=== PATIENT | female | born 1990 | race Caucasian/White ===

== ENCOUNTER 2016-10-29 12:02 | Observation (INO) | payer OTHER ==
[2016-10-29] MEDS ORDERED: SODIUM CHLORIDE 0.9% 1,000 ML IV STA ×2 (14:12)
--- NOTE | 2016-10-29 14:34 | ED ---
Syncope HPI - General Chief Complaint: Syncope Stated Complaint: Dizzy/passing out Time Seen by Provider: 10/29/16 14:01 Source: patient Mode of arrival: wheelchair Limitations: no limitations - History of Present Illness Initial Comments: This 26-year-old white female presents with the complaint of having 3 syncopal episodes around 11:30 AM. She states that they were all within approximately one hour. She states that she was able to lower herself down and did not sustain any injuries. She states that she's had some mild diffuse abdominal pain. She feels somewhat shaky. She denies any palpitations shortness of breath or chest pain. She does have a history of severe mitral regurgitation diagnosed approximately one year ago by cardiology. She had a transesophageal echo at that time. She also relates a recent diagnosis of atrial fibrillation via Dr. Morley. No other complaints or modifying factors. - Related Data Home Medications Medication Instructions Recorded Confirmed No Known Home Medications [No 09/06/15 10/29/16 Known Home Medications] Allergies Allergy/AdvReac Type Severity Reaction Status Date / Time No Known Allergies Allergy Verified 10/29/16 14:01 Review of Systems ROS Statement: Those systems with pertinent positive or pertinent negative responses have been documented in the HPI. ROS Other: All systems not noted in ROS Statement are negative. Past Medical History Past Medical History: Atrial Fibrillation, Hearing Disorder / Deafness Additional Past Medical History / Comment(s): "LOOSE HEART VALVE" History of Any Multi-Drug Resistant Organisms: None Reported Past Surgical History: Ear Surgery Additional Past Surgical History / Comment(s): WISDOM TEETH REMOVED Past Anesthesia/Blood Transfusion Reactions: No Reported Reaction Additional Past Anesthesia/Blood Transfusion Reaction / Comment(s): NEVER HAS HAD GENERAL ANESTHESIA Past Psychological History: No Psychological Hx Reported Smoking Status: Never smoker Past Alcohol Use History: None Reported Past Drug Use History: None Reported - Past Family History Mother Family Medical History: Hypertension Additional Family Medical History / Comment(s): HEART MURMUR Father Family Medical History: No Reported History Sister(s) Additional Family Medical History / Comment(s): ANEMIA General Exam - General Exam Comments Initial Comments: GENERAL: The patient is well nourished and well hydrated. VITAL SIGNS: Heart rate, blood pressure, respiratory rate reviewed as recorded in nurse's notes. EYES: Pupils are round and reactive. Extraocular movements are intact. No conjunctival / lid redness or swelling. ENT: No external evidence of injury, swelling, or ecchymosis. Airway is patent. Throat is clear. NECK: Nontender. No swelling or evidence of injury. No subcutaneous emphysema. Trachea is midline. No thyroid mass. HEART: Regular rate and rhythm. Good peripheral pulses. There is a large heart murmur noted. LUNGS/CHEST: Breath sounds clear and equal bilaterally. No rales, rhonchi, or wheezes. No ecchymosis, subcutaneous emphysema, or tenderness. ABDOMEN: Abdomen soft without tenderness. No palpable masses or organomegaly. No peritoneal signs. No abdominal wall swelling or ecchymosis. EXTREMITIES: No extremity tenderness. Normal muscle tone and function. No thoracolumbar tenderness. NEUROLOGIC: Sensation is grossly intact. Cranial nerve exam reveals face is symmetrical, tongue is midline, speech is clear. SKIN: No abrasions or ecchymosis is noted. No induration or masses noted. PSYCHIATRIC: Alert and oriented. Appropriate behavior and judgment. 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 All diagnostics were reviewed. IV is started and she is placed on a fugitive investigator. The EKG was done and shows a normal sinus rhythm at a rate of 77. There is no acute ST-T wave changes noted. The AL interval is 158, QRS duration is 100, and QTC intervals 454. An IV is started and she was thoroughly hydrated. The acute abdominal series was negative per radiology. The laboratory work is all essentially within normal limits. The exact cause of patient's symptomatology is not definitively determined. Case was discussed with Dr. Durand and he would like the patient admitted. He relates that she does have an atrial tachycardia. This potentially could be related to her symptoms. He would like TSH drawn as well. The patient will be admitted under telemetry observation. Case will be discussed with internal medicine in the near future. - Lab Data Result diagrams: 10/29/16 14:27 10/29/16 14:27 Lab Results 10/29/16 10/29/16 10/29/16 Range/Units 14:27 14:27 14:27 WBC 10.4 (3.8-10.6) k/uL RBC 4.50 (3.80-5.40) m/uL Hgb 13.8 (11.4-16.0) gm/dL Hct 41.3 (34.0-46.0) % MCV 91.7 (80.0-100.0) fL MCH 30.6 (25.0-35.0) pg MCHC 33.4 (31.0-37.0) g/dL RDW 12.7 (11.5-15.5) % Plt Count 162 (150-450) k/uL Neutrophils % 89 % Lymphocytes % 6 % Monocytes % 4 % Eosinophils % 0 % Basophils % 0 % Neutrophils # 9.3 H (1.3-7.7) k/uL Lymphocytes # 0.6 L (1.0-4.8) k/uL Monocytes # 0.4 (0-1.0) k/uL Eosinophils # 0.0 (0-0.7) k/uL Basophils # 0.0 (0-0.2) k/uL Sodium 140 (137-145) mmol/L Potassium 4.1 (3.5-5.1) mmol/L Chloride 103 (98-107) mmol/L Carbon Dioxide 24 (22-30) mmol/L Anion Gap 13 mmol/L BUN 8 (7-17) mg/dL Creatinine 0.80 (0.52-1.04) mg/dL Est GFR (MDRD) Af Amer >60 (>60 ml/min/1.73 sqM) Est GFR (MDRD) Non-Af >60 (>60 ml/min/1.73 sqM) Glucose 99 (74-99) mg/dL Calcium 9.2 (8.4-10.2) mg/dL Total Bilirubin 0.6 (0.2-1.3) mg/dL AST 19 (14-36) U/L ALT 27 (9-52) U/L Alkaline Phosphatase 61 (38-126) U/L Total Creatine Kinase 34 (30-135) U/L CK-MB (CK-2) <0.2 (0.0-2.4) ng/mL CK-MB (CK-2) Rel Index Troponin I <0.012 (0.000-0.034) ng/mL Total Protein 7.7 (6.3-8.2) g/dL Albumin 4.7 (3.5-5.0) g/dL Amylase <30 L (30-110) U/L Lipase 55 (23-300) U/L Urine Color Urine Appearance (Clear) Urine pH (5.0-8.0) Ur Specific [place] (1.001-1.035) Urine Protein (Negative) Urine Glucose (UA) (Negative) Urine Ketones (Negative) Urine Blood (Negative) Urine Nitrate (Negative) Urine Bilirubin (Negative) Urine Urobilinogen (<2.0) mg/dL Ur Leukocyte Esterase (Negative) Urine WBC (0-5) /hpf Ur Squamous Epith Cells (0-4) /hpf Urine Bacteria (None) /hpf Urine Mucus (None) /hpf 10/29/16 Range/Units 14:27 WBC (3.8-10.6) k/uL RBC (3.80-5.40) m/uL Hgb (11.4-16.0) gm/dL Hct (34.0-46.0) % MCV (80.0-100.0) fL MCH (25.0-35.0) pg MCHC (31.0-37.0) g/dL RDW (11.5-15.5) % Plt Count (150-450) k/uL Neutrophils % % Lymphocytes % % Monocytes % % Eosinophils % % Basophils % % Neutrophils # (1.3-7.7) k/uL Lymphocytes # (1.0-4.8) k/uL Monocytes # (0-1.0) k/uL Eosinophils # (0-0.7) k/uL Basophils # (0-0.2) k/uL Sodium (137-145) mmol/L Potassium (3.5-5.1) mmol/L Chloride (98-107) mmol/L Carbon Dioxide (22-30) mmol/L Anion Gap mmol/L BUN (7-17) mg/dL Creatinine (0.52-1.04) mg/dL Est GFR (MDRD) Af Amer (>60 ml/min/1.73 sqM) Est GFR (MDRD) Non-Af (>60 ml/min/1.73 sqM) Glucose (74-99) mg/dL Calcium (8.4-10.2) mg/dL Total Bilirubin (0.2-1.3) mg/dL AST (14-36) U/L ALT (9-52) U/L Alkaline Phosphatase (38-126) U/L Total Creatine Kinase (30-135) U/L CK-MB (CK-2) (0.0-2.4) ng/mL CK-MB (CK-2) Rel Index Troponin I (0.000-0.034) ng/mL Total Protein (6.3-8.2) g/dL Albumin (3.5-5.0) g/dL Amylase (30-110) U/L Lipase (23-300) U/L Urine Color Yellow Urine Appearance Cloudy H (Clear) Urine pH 5.5 (5.0-8.0) Ur Specific [place] 1.010 (1.001-1.035) Urine Protein Negative (Negative) Urine Glucose (UA) Negative (Negative) Urine Ketones Negative (Negative) Urine Blood Negative (Negative) Urine Nitrate Negative (Negative) Urine Bilirubin Negative (Negative) Urine Urobilinogen <2.0 (<2.0) mg/dL Ur Leukocyte Esterase Negative (Negative) Urine WBC 2 (0-5) /hpf Ur Squamous Epith Cells 1 (0-4) /hpf Urine Bacteria Rare H (None) /hpf Urine Mucus Many H (None) /hpf Disposition Clinical Impression: Syncope, Atrial tachycardia, Abdominal pain Disposition: ADMITTED IP TO THIS HOSP Condition: Fair Time of Disposition: 16:07 Decision Date: 10/29/16 Decision Time: 16:07
[2016-10-29 14:45] LABS: Basophils % (A) 0 %; CH 31.1; CHCM 34.1; Eosinophils % (A) 0 %; HCT 41.3 % (34.0-46.0); HDW 2.77; HGB 13.8 gm/dL (11.4-16.0); Luc # (Auto) 0.05; Luc % (Auto) 1; Lymphocytes # (A) 0.6 k/uL (1.0-4.8); Lymphocytes % (A) 6 %; MCH 30.6 pg (25.0-35.0); MCHC 33.4 g/dL (31.0-37.0); MCV 91.7 fL (80.0-100.0); Mean Platelet Volume 8.9; Monocytes # (A) 0.4 k/uL (0-1.0); Monocytes % (A) 4 %; Neutrophils # (A) 9.3 k/uL (1.3-7.7); Neutrophils % (A) 89 %; RDW 12.7 % (11.5-15.5); WBC 10.4 k/uL (3.8-10.6); WBC (Perox) 10.23
[2016-10-29 14:57] LABS: Appearance,Urine Cloudy (Clear); Bacteria,Urine Rare /hpf; Bilirubin,Urine Negative (Negative); Glucose,Urine (UA) Negative (Negative); Ketones,Urine Negative (Negative); Leukocyte Esterase,Urine Negative (Negative); Mucus,Urine Many /hpf; Nitrite,Urine Negative (Negative); PH, Urine 5.5 (5.0-8.0); Particle Count 8338; Protein,Urine Negative (Negative); Squamous Epithelial Cell,Urine 1 /hpf (0-4); UA Billing (MACRO vs. MICRO) MICRO; Urobilinogen,Urine <2.0 mg/dL (<2.0); WBC,Urine 2 /hpf (0-5)
[2016-10-29 14:58] LABS: ALT 27 U/L (9-52); AST 19 U/L (14-36); Alkaline Phosphatase 61 U/L (38-126); Amylase <30 U/L (30-110); Anion Gap 13 mmol/L; Blood Urea Nitrogen 8 mg/dL (7-17); Calcium 9.2 mg/dL (8.4-10.2); Carbon Dioxide 24 mmol/L (22-30); Chloride 103 mmol/L (98-107); Glucose 99 mg/dL (74-99); Non-African American GFR(MDRD) >60 (>60 ml/min/1.73 sqM); Potassium 4.1 mmol/L (3.5-5.1); Sodium 140 mmol/L (137-145); Total Bilirubin 0.6 mg/dL (0.2-1.3); Total Protein 7.7 g/dL (6.3-8.2)
[2016-10-29 15:14] LABS: Creatine Kinase 34 U/L (30-135)
--- NOTE | 2016-10-29 15:14 | XR ---
EXAMINATION TYPE: XR abdomen acute w cxr DATE OF EXAM: 10/29/2016 2:49 PM COMPARISON: NONE HISTORY: Abdominal pain, nausea and vomiting TECHNIQUE: Single view of the chest and 2 views of the abdomen are submitted. FINDINGS: Single view of the chest fails demonstrate evidence for acute pulmonary disease. There is a scoliotic curvature. IUD noted. The bowel gas pattern is unremarkable as there is air throughout nondilated small and large bowel. No sizeable air fluid levels. No mass effects are seen. No unusual calcifications. IMPRESSION: No acute process
[2016-10-29 15:28] LABS: Creatine Kinase MB <0.2 ng/mL (0.0-2.4); Troponin I <0.012 ng/mL (0.000-0.034)
[2016-10-29] MEDS ORDERED: ONDANSETRON 4 MG/2 ML VIAL IVP PRN (16:08)
[2016-10-29 20:48] LABS: Creatine Kinase 25 U/L (30-135)
[2016-10-29 21:02] LABS: Creatine Kinase MB <0.2 ng/mL (0.0-2.4); Troponin I <0.012 ng/mL (0.000-0.034)
[2016-10-30 03:24] LABS: Creatine Kinase 25 U/L (30-135)
[2016-10-30 03:37] LABS: Creatine Kinase MB <0.2 ng/mL (0.0-2.4); Troponin I <0.012 ng/mL (0.000-0.034)
[2016-10-30] MEDS: PANTOPRAZOLE 40 MG/10 ML VIAL IV SCH (09:19)
--- NOTE | 2016-10-30 14:00 | P.CRDCN ---
<Patience White E - Last Filed: 10/30/16 13:54> History of Present Illness Consult date: 10/30/16 Requesting physician: Soledad Daniel Consult reason: sycope Chief complaint: Syncope History of present illness: This is a pleasant 26-year-old female with history of mitral valve prolapse, mitral regurgitation, and paroxysmal atrial tachycardia. She presented to the hospital following a syncopal episode. 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 She states that this feeling came on her approximately 3 times, only losing consciousness once. She feels like the blood is draining from her body and she becomes extremely weak and lightheaded. Mild dizziness. No chest pain or palpitations at the time, no chest discomfort. Patient states that just prior to the episodes happening she had some mild abdominal pain. She states that she had one episode of this in the past which was just prior to her diagnosis of mitral regurgitation. EKG performed on arrival showed normal sinus rhythm with no acute changes. Abdominal x-ray did not reveal any acute process. Lab data, WBC 10.4, hemoglobin 13.8, platelet count 162. Potassium 4.1, BUN 8, creatinine 0.8. Troponins were negative 3. TSH 1.7. Blood pressure 123/70 on arrival, heart rate in the 80s. At the time of my examination this morning, patient feels well, no complaints. In normal sinus rhythm. Past Medical History Past Medical History: Atrial Fibrillation, Hearing Disorder / Deafness, Mitral Valve Prolapse (MVP) Additional Past Medical History / Comment(s): "LOOSE HEART VALVE", "wore heart monitor in sep 2016 told she had a short episode of afib and not on any meds" sinus problems/allergies, [place]-waiting on hearing aids. History of Any Multi-Drug Resistant Organisms: None Reported Past Surgical History: Ear Surgery Additional Past Surgical History / Comment(s): WISDOM TEETH REMOVED,von, lt ear sx(unable to complete d/t anatomical structuring) waiting on hearing aids. Past Anesthesia/Blood Transfusion Reactions: No Reported Reaction Additional Past Anesthesia/Blood Transfusion Reaction / Comment(s): NEVER HAS HAD GENERAL ANESTHESIA Past Psychological History: No Psychological Hx Reported Smoking Status: Never smoker Past Alcohol Use History: Rare Past Drug Use History: None Reported - Past Family History Mother Family Medical History: Hypertension, Thyroid Disorder Additional Family Medical History / Comment(s): HEART MURMUR Father Family Medical History: AFIB, Congestive Heart Failure (CHF), Mitral Valve Prolapse (MVP) Additional Family Medical History / Comment(s): wears hearing aids,murmur, enlarged heart Sister(s) Additional Family Medical History / Comment(s): ANEMIA Medications and Allergies Home Medications Medication Instructions Recorded Confirmed Type No Known Home Medications [No 09/06/15 10/29/16 History Known Home Medications] Allergies Allergy/AdvReac Type Severity Reaction Status Date / Time No Known Allergies Allergy Verified 10/29/16 14:01 Physical Exam Vitals: Vital Signs Temp Pulse Pulse Resp BP BP Pulse Ox 10/30/16 11:09 97.8 F 91 16 123/67 99 10/30/16 08:18 87 16 10/30/16 07:48 97.6 F 87 16 137/63 99 10/30/16 03:57 97.7 F 68 16 113/60 98 10/30/16 01:30 98.0 F 82 16 131/74 99 10/30/16 00:57 73 16 131/66 99 10/29/16 20:29 76 14 120/63 100 Intake and Output 10/29/16 10/30/16 10/30/16 22:59 06:59 14:59 Intake Total 40 Output Total 50 100 Balance -50 -60 Intake: Oral 40 Output: Urine 50 100 Other: Voiding Method Toilet Toilet # Voids 1 Weight 69.8 kg PHYSICAL EXAMINATION: HEENT: Head is atraumatic, normocephalic. Pupils equal, round. Neck is supple. There is no elevated jugular venous pressure. HEART EXAMINATION: Heart S1 and S2. Pansystolic murmur is heard. CHEST EXAMINATION: Lungs are clear to auscultation and precussion. No chest wall tenderness is noted on palpation or with deep breathing. ABDOMEN: Soft, nontender. Bowel sounds are heard. No organomegaly noted. EXTREMITIES: 2+ peripheral pulses with no evidence of peripheral edema and no calf tenderness noted. NEUROLOGIC patient is awake, alert and oriented -3. . Results 10/29/16 14:27 10/29/16 14:27 Cardiac Enzymes 10/29/16 10/30/16 Range/Units 20:15 02:25 CK-MB (CK-2) <0.2 <0.2 (0.0-2.4) ng/mL Troponin I <0.012 <0.012 (0.000-0.034) ng/mL Current Medications Generic Name Dose Route Start Last Admin Trade Name Freq PRN Reason Stop Dose Admin Ondansetron HCl 4 mg 10/29/16 16:08 Zofran IVP Q8HR PRN Nausea And Vomiting Pantoprazole Sodium 40 mg 10/30/16 09:00 10/30/16 09:19 Protonix IV 40 mg DAILY GREGORY Administration Intake and Output 10/29/16 10/30/16 10/30/16 22:59 06:59 14:59 Intake Total 40 Output Total 50 100 Balance -50 -60 Intake: Oral 40 Output: Urine 50 100 Other: Voiding Method Toilet Toilet # Voids 1 Weight 69.8 kg EKG Interpretations (text) EKG shows a normal sinus rhythm with no acute changes. Assessment and Plan Plan: Assessment and plan #1 syncope, likely vasovagal in nature. Precipitated by pain in the abdomen. #2 mitral regurgitation and mitral valve prolapse #3 atrial tachycardia, paroxysmal Plan We will check orthostatic blood pressure and heart rate every shift. Continue to monitor for any tachycardia or bradycardia arrhythmias. Repeat echocardiogram with Doppler study. Continue patient's to follow. DNP note has been reviewed, I agree with a documented findings and plan of care. Patient was seen and examined. <Lanre Durand - Last Filed: 10/30/16 14:25> Physical Exam Vitals: Vital Signs Temp Pulse Pulse Resp BP BP Pulse Ox 10/30/16 11:09 97.8 F 91 16 123/67 99 10/30/16 08:18 87 16 10/30/16 07:48 97.6 F 87 16 137/63 99 10/30/16 03:57 97.7 F 68 16 113/60 98 10/30/16 01:30 98.0 F 82 16 131/74 99 10/30/16 00:57 73 16 131/66 99 10/29/16 20:29 76 14 120/63 100 Intake and Output 10/29/16 10/30/1610/30/17 22:59 06:59 14:59 Intake Total 40 Output Total 50 100 Balance -50 -60 Intake: Oral 40 Output: Urine 50 100 Other: Voiding Method Toilet Toilet # Voids 1 Weight 69.8 kg Results 10/29/16 14:27 10/29/16 14:27 Cardiac Enzymes 10/29/16 10/30/16 Range/Units 20:15 02:25 CK-MB (CK-2) <0.2 <0.2 (0.0-2.4) ng/mL Troponin I <0.012 <0.012 (0.000-0.034) ng/mL Current Medications Generic Name Dose Route Start Last Admin Trade Name Freq PRN Reason Stop Dose Admin Ondansetron HCl 4 mg 10/29/16 16:08 Zofran IVP Q8HR PRN Nausea And Vomiting Pantoprazole Sodium 40 mg 10/30/16 09:00 10/30/16 09:19 Protonix IV 40 mg DAILY GREGORY Administration Intake and Output 10/29/16 10/30/16 10/30/16 22:59 06:59 14:59 Intake Total 40 Output Total 50 100 Balance -50 -60 Intake: Oral 40 Output: Urine 50 100 Other: Voiding Method Toilet Toilet # Voids 1 Weight 69.8 kg
--- NOTE | 2016-10-30 18:16 | P.HPIM ---
History of Present Illness H&P Date: 10/30/16 Chief Complaint: Syncope 26-year-old female with history of mitral valve prolapse comes in to the hospital with an episode of syncope. 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 She stated to have sudden abdominal pain on her left side prior to fainting denies having any abdominal pain at this time no complains of urinary urgency or frequency or change in bowel habits recently Patient denied having any warning signs prior to fainting episode. Denies having any palpitations, chest pressure at that time. Patient does have a history of mitral regurgitation mitral valve prolapse and proximal atrial tachycardia. Patient apparently received a Holter monitor recently and was only noted to have a short burst of atrial tachycardia on that. Patient did lose her consciousness, and the ER initial eval did not reveal any abnormalities in regards to focal weakness or numbness. There is no headaches or reported. Patient was back to her normal self. EKG did not reveal any sinus blocks at this time. At the time of my examination patient states to be asymptomatic. Orthostatics were done which were also negative. Review of Systems All systems: negative (Noted in HPI) Past Medical History Past Medical History: Atrial Fibrillation, Hearing Disorder / Deafness, Mitral Valve Prolapse (MVP) Additional Past Medical History / Comment(s): "LOOSE HEART VALVE", "wore heart monitor in sep 2016 told she had a short episode of afib and not on any meds" sinus problems/allergies, [place]-waiting on hearing aids. History of Any Multi-Drug Resistant Organisms: None Reported Past Surgical History: Ear Surgery Additional Past Surgical History / Comment(s): WISDOM TEETH REMOVED,von, lt ear sx(unable to complete d/t anatomical structuring) waiting on hearing aids. Past Anesthesia/Blood Transfusion Reactions: No Reported Reaction Additional Past Anesthesia/Blood Transfusion Reaction / Comment(s): NEVER HAS HAD GENERAL ANESTHESIA Past Psychological History: No Psychological Hx Reported Smoking Status: Never smoker Past Alcohol Use History: Rare Past Drug Use History: None Reported - Past Family History Mother Family Medical History: Hypertension, Thyroid Disorder Additional Family Medical History / Comment(s): HEART MURMUR Father Family Medical History: AFIB, Congestive Heart Failure (CHF), Mitral Valve Prolapse (MVP) Additional Family Medical History / Comment(s): wears hearing aids,murmur, enlarged heart Sister(s) Additional Family Medical History / Comment(s): ANEMIA Medications and Allergies Home Medications Medication Instructions Recorded Confirmed Type No Known Home Medications [No 09/06/15 10/29/16 History Known Home Medications] Allergies Allergy/AdvReac Type Severity Reaction Status Date / Time No Known Allergies Allergy Verified 10/29/16 14:01 Physical Exam Vitals: Vital Signs Temp Pulse Pulse Resp BP BP BP 10/30/16 16:00 97.5 F L 69 14 136/82 10/30/16 14:32 137/81 133/79 10/30/16 11:09 97.8 F 91 16 10/30/16 08:18 87 16 10/30/16 07:48 97.6 F 87 16 10/30/16 03:57 97.7 F 68 16 10/30/16 01:30 98.0 F 82 16 10/30/16 00:57 73 16 131/66 10/29/16 20:29 76 14 120/63 BP Pulse Ox 10/30/16 16:00 99 10/30/16 14:32 128/75 10/30/16 11:09 123/67 99 10/30/16 08:18 10/30/16 07:48 137/63 99 10/30/16 03:57 113/60 98 10/30/16 01:30 131/74 99 10/30/16 00:57 99 10/29/16 20:29 100 Intake and Output 10/30/16 10/30/16 10/30/16 06:59 14:59 22:59 Intake Total 40 118 Output Total 50 100 600 Balance -50 -60 -482 Intake: Oral 40 118 Output: Urine 50 100 600 Other: Voiding Method Toilet Toilet # Voids 1 Weight 69.8 kg Gen Appearance alert oriented 3 in no distress Lungs currently clear to auscultation Abdomen is soft nontender no organomegaly Neurologically no focal motor or sensory deficit patient. Cranial nerves II-12 grossly intact no carotid bruits appreciated Heart regular rate and rhythm ectopy appreciated. There is a systolic murmur that is loud at the apex. And radiating to the axilla Results CBC & Chem 7: 10/29/16 14:27 10/29/16 14:27 Labs: Abnormal Lab Results - Last 24 Hours (Table) 10/29/16 10/30/16 Range/Units 20:15 02:25 Total Creatine Kinase 25 L 25 L (30-135) U/L Thrombosis Risk Factor Assmnt - Choose All That Apply Any of the Below Risk Factors Present?: No Other Risk Factors: No Other congenital or acquired thrombophilia - If yes, enter type in comment: No Thrombosis Risk Factor Assessment Level: Very Low Risk Assessment and Plan Plan: #1 syncope likely vasovagal in nature #2 history of mitral regurgitation #3 mitral valve prolapse #4 proximal atrial tachycardia Plan Orthostatics are negative. A repeat echocardiogram is ordered by cardiology. Continue monitoring the patient in telemetry for the next 24 hours. May benefit from it a having a prolonged Holter if these symptoms recur. However this appears to be vasovagal in nature.
[2016-10-31] MEDS: PANTOPRAZOLE 40 MG/10 ML VIAL IV SCH (08:49)
[2016-10-31 09:46] VITALS: RESP 14
--- NOTE | 2016-10-31 11:27 | P.PN ---
Subjective Principal diagnosis: Syncope This is a pleasant 26-year-old female with history of mitral valve prolapse, mitral regurgitation, and paroxysmal atrial tachycardia. She presented to the hospital following a syncopal episode. 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 She states that this feeling came on her approximately 3 times, only losing consciousness once. She feels like the blood is draining from her body and she becomes extremely weak and lightheaded. Mild dizziness. No chest pain or palpitations at the time, no chest discomfort. Patient states that just prior to the episodes happening she had some mild abdominal pain. No orthostatic have been documented. She's been up ambulating in the hallway today with no further symptoms of abdominal discomfort or lightheadedness. No arrhythmias have been noted on the monitor. Lab work normal. Awaiting results of echocardiogram with Doppler study. Objective - Vital Signs Vital signs: Vital Signs Temp 98.8 F 10/31/16 08:00 Pulse 82 10/31/16 08:00 Resp 14 10/31/16 08:00 BP 125/70 10/31/16 08:00 Pulse Ox 98 10/31/16 08:00 Intake & Output 10/30/16 10/31/16 10/31/16 18:59 06:59 18:59 Intake Total 158 Output Total 700 1050 Balance -542 -1050 Weight 69.1 kg Intake: Oral 158 Output: Urine 700 1050 Other: Voiding Method Toilet Toilet # Voids 1 1 - Exam PHYSICAL EXAMINATION: HEENT: Head is atraumatic, normocephalic. Pupils equal, round. Neck is supple. There is no elevated jugular venous pressure. HEART EXAMINATION: Heart S1, S2 normal. No murmur or gallop heard. CHEST EXAMINATION: Lungs are clear to auscultation and precussion. No chest wall tenderness is noted on palpation or with deep breathing. ABDOMEN: Soft, nontender. Bowel sounds are heard. No organomegaly noted. EXTREMITIES: 2+ peripheral pulses with no evidence of peripheral edema and no calf tenderness noted. NEUROLOGIC patient is awake, alert and oriented -3. . - Labs CBC & Chem 7: 10/29/16 14:27 10/29/16 14:27 Assessment and Plan Plan: Assessment and plan #1 syncope, likely vasovagal in nature. Precipitated by pain in the abdomen. #2 mitral regurgitation and mitral valve prolapse #3 atrial tachycardia, paroxysmal Plan Patient has no documented orthostatic blood pressure or heart rate changes. No arrhythmias have been noted on the monitor. We will await echocardiogram with Doppler study, plan on discharge home today. A follow-up appointment will be made with Dr. Durand in the office post discharge. DNP note has been reviewed, I agree with a documented findings and plan of care. Patient was seen and examined.
[2016-10-31 14:44] VITALS: BP 124/70; PULSE 81; TEMP 98.5
--- NOTE | 2016-10-31 20:50 | P.DS ---
Providers Date of admission: 10/29/16 16:09 Attending physician: Soledad Daniel Primary care physician: Heather Vargas [facility] Course: Chief Complaint: Syncope 26-year-old female with history of mitral valve prolapse comes in to the hospital with an episode of syncope. 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 She stated to have sudden abdominal pain on her left side prior to fainting denies having any abdominal pain at this time no complains of urinary urgency or frequency or change in bowel habits recently Patient denied having any warning signs prior to fainting episode. Denies having any palpitations, chest pressure at that time. Patient does have a history of mitral regurgitation mitral valve prolapse and proximal atrial tachycardia. Patient apparently received a Holter monitor recently and was only noted to have a short burst of atrial tachycardia on that. Patient did lose her consciousness, and the ER initial eval did not reveal any abnormalities in regards to focal weakness or numbness. There is no headaches or reported. Patient was back to her normal self. EKG did not reveal any sinus blocks at this time. At the time of my examination patient states to be asymptomatic. Orthostatics were done which were also negative. day of discharge Pt didnot have any abnormalities on telemetry Gen Appearance alert oriented 3 in no distress Lungs currently clear to auscultation Abdomen is soft nontender no organomegaly Neurologically no focal motor or sensory deficit patient. Cranial nerves II-12 grossly intact no carotid bruits appreciated Heart regular rate and rhythm ectopy appreciated. There is a systolic murmur that is loud at the apex. And radiating to the axilla Assessment and Plan Plan: #1 syncope likely vasovagal in nature #2 history of mitral regurgitation #3 mitral valve prolapse #4 proximal atrial tachycardia orthostatics were negative Likely vasovagal due to abdominal pain Follow up outpatient for Repeat echocardiogram results. No recurrent symptoms after 24 hrs. Patient Condition at Discharge: Fair Plan - Discharge Summary Discharge Medication List No Known Home Medications [No Known Home Medications] 09/06/15 [History] Follow up Appointment(s)/Referral(s): Lanre Durand MD [STAFF PHYSICIAN] - 11/06/16 1:30 pm (With Katherine Mosher NP.) Heather Vargas MD [Primary Care Provider] - 11/05/16 10:45 am Patient Instructions/Handouts: Syncope (DC) Discharge Disposition: HOME SELF-CARE
--- NOTE | 2016-11-05 08:23 | ECHOF ---
Referral Reason:syncope MEASUREMENTS -------- HEIGHT: 172.7 cm WEIGHT: 69.0 kg BP: 15/70 RVIDd: 2.8 cm (< 3.3) IVSd: 1.0 cm (0.6 - 1.1) LVIDd: 5.8 cm (3.9 - 5.3) LVPWd: 1.0 cm (0.6 - 1.1) IVSs: 1.2 cm LVIDs: 4.4 cm LVPWs: 1.6 cm LA Diam: 3.1 cm (2.7 - 3.8) LAESV Index (A-L): 25.71 ml/m Ao Diam: 3.4 cm (2.0 - 3.7) AV Cusp: 2.6 cm (1.5 - 2.6) MV EXCURSION: 25.944 mm (> 18.000) MV EF SLOPE: 116 mm/s (70 - 150) EPSS: 0.2 cm MV E Ifeanyi: 1.12 m/s MV DecT: 246 ms MV A Ifeanyi: 0.68 m/s MV E/A Ratio: 1.64 FINDINGS -------- Sinus rhythm. This was a technically good study. The left ventricle is mildly dilated. Left ventricular wall thickness is normal. Overall left ventricular systolic function is low-normal with, an EF between 50 - 55 %. Atypical most of the mid septal area The right ventricle is normal in size and function. The left atrium is normal in size. Normal LA size by volume 22+/-6 ml/m2. The right atrium is normal in size. The aortic valve is trileaflet and appears structurally normal. The mitral valve leaflets are mildly thickened. Moderate mitral regurgitation is present. There is mild mitral valve prolapse , predominately a posteriorly directed jet. The tricuspid valve appears structurally normal. No regurgitation noted Trace/mild (physiologic) pulmonic regurgitation. The aortic root size is normal. The inferior vena cava is mildly dilated. There is no pericardial effusion. CONCLUSIONS -------- 1. Sinus rhythm. 2. The aortic valve is trileaflet and appears structurally normal. 3. The mitral valve leaflets are mildly thickened. 4. Moderate mitral regurgitation is present. 5. There is mild mitral valve prolapse. 6. , predominately a posteriorly directed jet. 7. The tricuspid valve appears structurally normal. 8. Trace/mild (physiologic) pulmonic regurgitation. 9. The aortic root size is normal. 10. The inferior vena cava is mildly dilated. 11. There is no pericardial effusion. 12. This was a technically good study. 13. The left ventricle is mildly dilated. 14. Left ventricular wall thickness is normal. 15. Overall left ventricular systolic function is low-normal with, an EF between 50 - 55 %. 16. Atypical most of the mid septal area 17. The right ventricle is normal in size and function. 18. The left atrium is normal in size. 19. The right atrium is normal in size. LANE ATTENDANT: Jennifer Sanders RDCS
== END 2016-10-31 14:42 | disposition home or self-care (01) ==
LOC: EC 12:02 → 3OBS 16:09 → 6SEL 10-30 00:32
PROVIDERS: ADMIT Hospitalist; ATTEND Hospitalist
DX: R55 Syncope and collapse (principal); I34.0 Nonrheumatic mitral (valve) insufficiency; I34.1 Nonrheumatic mitral (valve) prolapse; I47.1 Supraventricular tachycardia; I48.91 Unspecified atrial fibrillation; R10.9 Unspecified abdominal pain; H91.90 Unspecified hearing loss, unspecified ear; Z82.49 Family history of ischemic heart disease and other diseases of the circulatory system
CPT/HCPCS: 36415; 93005; 93306; 80053; 84443; 82150; 82550 ×2; 82553 ×2; 83690; 84484 ×2; 85025; 81001; 74022; 99285; 96361 ×5; G0378 ×3; C9113 ×2; 96374

== ENCOUNTER → 2019-06-28 | Outpatient (CLI) | payer OTHER ==
--- NOTE | 2019-06-28 18:48 | MR ---
EXAMINATION TYPE: MR brain wo/w con DATE OF EXAM: 06/28/2019 COMPARISON: NONE HISTORY: 28 year-old female chronic tension-type headache, intractable TECHNIQUE: Multiplanar, multisequence images of the brain and brainstem were acquired before and aft er administration of 7 mL IV Gadavist. Diffusion weighted imaging is performed. FINDINGS: No evidence for acute infarction, hemorrhage, mass, mass effect, midline shift, herniation, effacemen t of basal cisterns, or extra-axial fluid collection. The ventricles and sulci are age-appropriate. Major intracranial flow voids are intact. T2-weighted FLAIR images and T2-weighted images show T2 bright signal foci in the juxtacortical and p eriventricular white matter of both cerebral hemispheres. There is a tiny 3 x 3 x 2 mm hypoenhancing focus within the posterior aspect of the pituitary gland, are refer to postcontrast sagittal image 77 postcontrast axial image 10. Axial T2 image 10 suggests s ome intrinsic bright fluid signal. Otherwise, midline structures demonstrate normal morphology. The craniocervical junction is normal. Post contrast images demonstrate no evidence of pathologic enhancement. Dural venous sinuses are pat ent. Scattered mild mucosal thickening ethmoid air cells and floors of the maxillary sinuses. Globes are i ntact. IMPRESSION: 1. Tiny 3 mm hypoenhancing focus in the posterior aspect of the pituitary gland could represent a tin y Rathke's cleft cyst or small adenoma. Consider further evaluation with pituitary MRI. 2. Otherwise, no intracranial abnormality or abnormal enhancement seen. 3. Mild chronic ethmoid and maxillary sinus disease.
== END | disposition home or self-care (01) ==
LOC: RADMRIMAIN 11:06
PROVIDERS: ATTEND Physician Assistant
DX: G44.221 Chronic tension-type headache, intractable (principal)
CPT/HCPCS: 70553; A9585

== ENCOUNTER → 2019-07-28 | Outpatient (CLI) | payer OTHER ==
--- NOTE | 2019-07-28 08:08 | MR ---
EXAMINATION TYPE: MR pituitary wo/w con DATE OF EXAM: 07/28/2019 COMPARISON: MRI brain June 28, 2019. HISTORY: Abnormal mri of brain TECHNIQUE: Multiplanar, multisequence images of the brain and brainstem is performed without and with IV contras t, utilizing 7 mL intravenous Gadavist . Pituitary gland protocol. FINDINGS: Pituitary gland is within normal limits in size for patient's age and gender. It does redem onstrate a convex superior margin. Pituitary stalk shows normal enhancement in the midline. Suprasell ar cistern is maintained. Optic chiasm is not effaced. Corresponding to recent MRI there is a curvili near area of nonenhancement along the posterior aspect of pituitary gland measuring just over 3 mm by 1 to 2 mm sagittal image 9 that is fairly isointense to remainder of gland on precontrast images. No gross hydrocephalus. Craniocervical junction is maintained. IMPRESSION: As above, confirmation of area of nonenhancement could reflect a Rathke cleft cyst or sma ll microadenoma. Correlate clinically and with lab values.
== END | disposition home or self-care (01) ==
LOC: RADMRIMAIN 06:12
PROVIDERS: ATTEND Physician Assistant
DX: E23.6 Other disorders of pituitary gland (principal)
CPT/HCPCS: 70553; A9585

== ENCOUNTER 2019-10-14 10:49 | Day surgery (SDC) | payer OTHER ==
[2019-10-12 12:07] VITALS: BMI 24.3
[2019-10-14] MEDS ORDERED: SODIUM CHLORIDE 0.9% 500 ML 500 ML IV ONE (11:10)
[2019-10-14 11:18] VITALS: RESP 16; TEMP 98.1
[2019-10-14] MEDS ORDERED: fentaNYL (PF) 50 MCG/ML 2 ML AMP ONE (11:43)
[2019-10-14] MEDS: BENZOCAINE SPRAY 1 CAN TOPICAL ONE ×3 (11:56→12:26)
[2019-10-14] MEDS ORDERED: MIDAZOLAM 2 MG/2 ML VIAL IVP ONE (12:16)
[2019-10-14] MEDS: fentaNYL (PF) 50 MCG/ML 2 ML AMP IVP ONE ×2 (12:16→12:26)
[2019-10-14] MEDS ORDERED: SODIUM CHLORIDE 0.9% 1,000 ML IV SCH (13:15)
[2019-10-14 13:24] VITALS: BP 127/67; PULSE 80
--- NOTE | 2019-10-14 13:32 | ECHOT ---
TRANSESOPHAGEAL ECHOCARDIOGRAM Mrs. Dove is a 29-year-old female who underwent a transesophageal echocardiogram to assess the mitral regurgitation. The patient was given intravenous sedation with Versed and fentanyl and transesophageal echocardiogram was performed without any complications. FINDINGS: Left ventricular chamber is normal in size with normal left ventricular systolic functions. Left atrium is mildly enlarged. Left atrial appendage is moderately enlarged. There is a thickening of the mitral leaflet. The posterior mitral leaflet particularly the medial scallop is severely prolapsed and is suggestion of the flail mitral leaflet. The color Doppler study shows evidence of severe degree of eccentric mitral regurgitation. There is evidence of reversal of flow in the pulmonary vein. Left atrium is mildly enlarged. Right atrium and right ventricular chamber are normal in size. Interatrial septum is intact. There is no evidence of any PFO by saline contrast study. FINAL IMPRESSION: There is a severe degree of mitral valve prolapse and almost flail posterior mitral leaflet, particularly involving the medial scallop. There is evidence of severe degree of eccentric mitral regurgitation with reversal of flow noted in the pulmonary vein. Left atrium is mildly enlarged. Left ventricular systolic function is normal. Aortic and tricuspid valve morphology is normal. Interatrial septum is intact. There is no evidence of any patent foramen ovale. MMODL / IJN: [id number] /
== END 2019-10-14 14:07 | disposition home or self-care (01) ==
LOC: CATHCVL 10:49
PROVIDERS: ATTEND Internal Medicine Cardiovascular Disease
DX: I34.1 Nonrheumatic mitral (valve) prolapse (principal); I34.0 Nonrheumatic mitral (valve) insufficiency; Z79.899 Other long term (current) drug therapy
CPT/HCPCS: 93312; 93325; 81025; J2250; J3010; 93320

== ENCOUNTER → 2019-12-28 | Outpatient (CLI) | payer OTHER ==
--- NOTE | 2019-12-28 13:09 | MR ---
EXAMINATION TYPE: MR pituitary wo/w con DATE OF EXAM: 12/28/2019 COMPARISON: Prior MRI of pituitary gland July 28, 2019 HISTORY: Benign neoplasm of pituitary gland TECHNIQUE: Multiplanar, multisequence images of the brain and brainstem is performed without and with IV contras t, utilizing 7 mL intravenous Gadavist . Pituitary gland protocol. FINDINGS: Pituitary gland remains within normal limits in size for patient's age and gender filling t he sella turcica. It does redemonstrate a convex superior margin. Pituitary stalk shows normal enhanc ement in the midline on the coronal images unchanged from prior. Suprasellar cistern is maintained. O ptic chiasm is not effaced. Corresponding to recent MRI there is a curvilinear area of nonenhancement along the posterior aspect of pituitary gland measuring just over 3 mm in length by 1 to 2 mm AP alejandra meter sagittal image 8 series 601 that is fairly isointense to remainder of gland on precontrast imag es. No significant change from prior. No new areas of nonenhancement. No gross hydrocephalus. Craniocervical junction is maintained. IMPRESSION: Overall stable findings, findings could reflect a Rathke cleft cyst or small atypical sha ped microadenoma. Correlate clinically.
== END | disposition home or self-care (01) ==
LOC: RADMRIMAIN 12:01
PROVIDERS: ATTEND Neurological Surgery
DX: D35.2 Benign neoplasm of pituitary gland (principal)
CPT/HCPCS: 70553; A9585